=== PATIENT | male | born 1980 | race Caucasian/White ===

== ENCOUNTER 2022-11-19 09:59 | Day surgery (SDC) | payer BC ==
--- NOTE | 2022-11-19 08:35 | HP ---
DATE OF SURGERY: 11/19/2022 HISTORY OF PRESENT ILLNESS: The patient is a 42-year-old had some right upper quadrant aches, some nausea. Ultrasound of gallbladder no gallstones. Gallbladder ejection fraction at 47%. I feel the patient would benefit from upper endoscopy to evaluate for gastritis, esophagitis, peptic ulcer disease, celiac disease or other etiology. PAST MEDICAL HISTORY: He denied any chronic illnesses. PAST SURGICAL HISTORY: He denied any prior surgery. MEDICATIONS: None. ALLERGIES: NKDA. FAMILY HISTORY: Hypertension in his mother. Father's unknown as his father was adopted according to the patient. SOCIAL HISTORY: He does smoke occasional marijuana, occasional alcohol use. REVIEW OF SYSTEMS: Fourteen systems reviewed. No chest pain or palpitations. Other systems negative or noncontributory as above and per preadmission questionnaire. PHYSICAL EXAMINATION: BMI 22.3. Height 5'1". GENERAL: No acute distress. HEENT: Sclerae nonicteric. NECK: No JVD. CHEST: Equal excursion, nonlabored breathing. CVS: Regular rate and rhythm. ABDOMEN: Soft, some mild right upper quadrant tenderness. No peritoneal signs. EXTREMITIES: No significant edema. NEURO: Alert, oriented, moving extremities symmetrically. PSYCH: Appropriate mood and affect. SKIN: Dry. IMPRESSION: Right upper quadrant abdominal aches, had some nausea of unclear etiology whether peptic ulcer disease, esophagitis, celiac disease, gastritis, duodenitis or other etiology. I feel he would benefit from upper endoscopy for further evaluation. Risks and benefits explained in detail including but not limited to bleeding or infection, risk of bowel injury or perforation, risk of missed or nondiagnosis or incomplete exam possibly requiring other studies or referrals. His HIDA ejection fraction of 47% and the ultrasound no stones, I felt he warrants upper endoscopy at this time. He agrees to the plan, will proceed with EGD as an outpatient.
[2022-11-19] MEDS ORDERED: Lactated Ringers 1,000 ML IV SCH (10:30)
[2022-11-19] MEDS ORDERED: Lactated Ringers 1,000 ML IV ONE (10:45)
[2022-11-19] MEDS ORDERED: Versed 2 MG/2 ML Injection ONE (12:00)
[2022-11-19] MEDS ORDERED: DIPRIVAN 200 MG/20 ML IV ONE (12:00)
[2022-11-19 12:44] VITALS: O2SAT 99
[2022-11-19 12:58] VITALS: BP 131/83
[2022-11-19 13:15] VITALS: PULSE 44
--- NOTE | 2022-11-19 13:48 | OP ---
SURGERY DATE/TIME: 11/19/2022 1203 PREOPERATIVE DIAGNOSIS: History of some right upper quadrant pain and nausea. History of prior negative gallbladder ultrasound. History of HIDA scan normal ejection fraction. POSTOPERATIVE DIAGNOSES: 1) Minimal to mild gastritis. 2) Superficial ulcer antral area. 3) ASA Class II. PROCEDURES: 1) EGD with cold biopsy of small bowel to evaluate for celiac sprue. 2) Cold biopsy of the antrum to evaluate for Helicobacter pylori. 3) Cold biopsy margin of antral ulcer. 4) Random cold biopsies distal and mid esophagus to evaluate for eosinophilic esophagitis or other etiology. SURGEON: Dr. Neel Hutson. ANESTHESIA: MAC. ESTIMATED BLOOD LOSS: Minimal. INDICATIONS: As noted above. Risks and benefits explained in detail and not limited to and consent obtained. DESCRIPTION OF PROCEDURE AND FINDINGS: The patient is taken to the endoscopy room. MAC anesthesia introduced. After official time out and no disagreement with planned procedure, a bite block positioned. Video gastroscope easily passed down the esophagus through the patent pylorus to the junction of the third and fourth portion of the duodenum. Third, second and first portion of duodenum fairly unremarkable. There were no large ulcers noted. Some random cold biopsies taken in the small bowel to evaluate for celiac sprue. The scope was pulled back in the stomach. He had some mild gastric erythema and possibly some minimal to mild early gastritis. Cold biopsy taken to evaluate for Helicobacter pylori. There was a little superficial ulceration in more proximal antrum and cold biopsy taken. Good hemostasis noted. Otherwise gastroesophageal junction snug. No signs of any hiatal hernia. Scope straightened. The gastroesophageal junction about 40 cm. Z-line was fairly crisp. Given his symptom complaints some random cold biopsies in the esophagus to evaluate for eosinophilic esophagitis and to rule out other cause of his symptoms. Good hemostasis noted. Again, distal esophagus and mid esophagus biopsy through this region. The scope is withdrawn. Findings discussed with the family out in the waiting area.
== END 2022-11-19 13:20 | disposition home or self-care (01) ==
LOC: SDC 09:59
PROVIDERS: ATTEND Surgery
DX: K29.70 Gastritis, unspecified, without bleeding (principal); R10.11 Right upper quadrant pain; R11.0 Nausea; K25.9 Gastric ulcer, unspecified as acute or chronic, without hemorrhage or perforation
CPT/HCPCS: J2250; J2704